=== PATIENT | female | born 1945 | race Caucasian/White ===

== ENCOUNTER 2022-06-16 08:47 | Outpatient (CLI) | payer MEDICARE, SELFPAY ==
--- NOTE | 2022-06-16 11:30 | NEURO_ITS ---
Impression: # Complains of pain in lower extremities. 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 # Needle/EMG exam neurogenic distal more than proximal but no active fibrillation. # Clinical correlation recommended. Nerve Conduction Studies Anti Sensory Summary Table Stim Site NR Peak (ms) P-T Amp (?V) Site1 Site2 Delta-P (ms) Dist (cm) Kodak (m/s) Left Sup Fibular Anti Sensory (Ant Lat Mall) NO RESPONSE 14 cm NR 14 cm Ant Lat Mall 16.0 Right Sup Fibular Anti Sensory (Ant Lat Mall) NO RESPONSE 14 cm NR 14 cm Ant Lat Mall 16.0 Left Sural Anti Sensory (Lat Mall) NO RESPONSE Calf NR Calf Lat Mall 16.0 Right Sural Anti Sensory (Lat Mall) NO RESPONSE Calf NR Calf Lat Mall 16.0 Motor Summary Table Stim Site NR Onset (ms) O-P Amp (mV) Site1 Site2 Delta-0 (ms) Dist (cm) Kodak (m/s) Left Peroneal Motor (Vastus Med) Ankle 5.8 0.8 Popit Ankle 9.2 33.0 36 Popit 15.0 0.8 Right Peroneal Motor (Vastus Med) Ankle 5.5 0.3 Popit Ankle 9.7 33.0 34 Popit 15.2 0.4 Left Tibial Motor (Abd Alcala Brev) Ankle 5.6 1.2 Knee Ankle 9.9 37.0 37 Knee 15.5 1.6 Right Tibial Motor (Abd Alcala Brev) Ankle 5.2 0.1 Knee Ankle 10.7 37.0 35 Knee 15.9 0.4 F Wave Studies NR F-Lat (ms) L-R F-Lat (ms) Left Peroneal (Mrkrs) (EDB) 57.66 3.98 Right Peroneal (Mrkrs) (EDB) 61.64 3.98 Left Tibial (Mrkrs) (Abd Hallucis) 58.97 3.74 Right Tibial (Mrkrs) (Abd Hallucis) 62.71 3.74 EMG Side Muscle Nerve Root Ins Act Fibs Amp Dur Recrt Comment Right AntTibialis Dp Br Fibular L4-5 Nml Nml Nml Nml Nml Right Gastroc Tibial S1-2 Nml Nml Nml Nml Nml Right Fibularis Long Sup Br Fibular L5-S1 Nml Nml Nml Nml Reduced Right Flex Dig Long Tibial L5-S2 Nml Nml Nml Nml Reduced Right Ext Dig Brev Dp Br Fibular L5, S1 Nml Nml Nml >12ms Reduced Left AntTibialis Dp Br Fibular L4-5 Nml Nml Nml Nml Nml Left Gastroc Tibial S1-2 Nml Nml Nml Nml Nml Left Fibularis Long Sup Br Fibular L5-S1 Nml Nml Nml Nml Reduced Left Flex Dig Long Tibial L5-S2 Nml Nml Nml Nml Reduced Left Ext Dig Brev Dp Br Fibular L5, S1 Nml Nml Nml >12ms Reduced Right Ext Dig Long Dp Br Fibular L5-S1 Nml Nml Nml >12ms Reduced Left Ext Dig Long Dp Br Fibular L5-S1 Nml Nml Nml >12ms Reduced MTDD
== END 2022-06-16 08:48 | disposition home or self-care (01) ==
LOC: ANHNEURO 08:50
DX: G25.81 Restless legs syndrome (principal); G62.9 Polyneuropathy, unspecified
CPT/HCPCS: 95886; 95910

== ENCOUNTER 2024-04-02 13:50 | Outpatient (CLI) | payer MEDICARE, SELFPAY ==
[2024-04-02 15:40] LABS: Urine Cotinine NEGATIVE
[2024-04-02 18:32] LABS: Hemoglobin A1C 5.1 % (<5.7)
== END 2024-04-02 13:51 | disposition home or self-care (01) ==
LOC: ANHSURGERY 13:58
PROVIDERS: PCP Family Medicine; Visit Provider Orthopaedic Surgery
DX: Z01.818 Encounter for other preprocedural examination (principal); M16.12 Unilateral primary osteoarthritis, left hip
CPT/HCPCS: 80307; 83036; 87081

== ENCOUNTER 2024-04-16 00:18 | Day surgery (SDC) | payer MEDICARE, SELFPAY ==
--- NOTE | 2024-04-02 13:52 | PC.NURSE ---
PRE-OP INSTRUCTIONS, PLEASE READ CAREFULLY Report to the Outpatient Waiting Room, entrance under the green pavilion located off [facility], at time _0600_ on date _04/16/24_. Planned Procedure Time: _0730_. PACK A SMALL OVERNIGHT BAG AND LEAVE IN THE CAR ALONG WITH YOUR WALKER Time changes happen often and if your time is changed the preop area will call you the afternoon before. - You and your visitor will be asked to self-screen and do not enter if you have any COVID symptoms. - A mask is optional within the hospital at this time. -VISITING HOURS 8AM-8PM Patients may have clear liquids (water, carbonated beverages, clear teas, apple juice) until 3 hours prior to surgery (0430 AM) with a maximum of 20 ounces. - No food from midnight until time of surgery Take the following medications with a SIP of water the morning of surgery: _CARVEDILOL, PRAMIPEXOLE, TIMOLOL EYE DROP, & CYCLOBENZAPRINE, TRAMADOL IF NEEDED_ DO NOT STOP ANY OF YOUR OTHER PRESCRIPTION MEDICATIONS PRIOR TO SURGERY ?EXCEPT THE FOLLOWING Medications to discontinue - _ASPIRIN INSTRUCTED BY DR. BEACH, PATIENT STATES TO CONTINUE ASPIRIN_ Medications to discontinue per ANESTHESIA - _MULTIVITAMIN, SUPPLEMENTS 3 DAYS PRIOR TO SURGERY, Date to take last dose 04/12/24_ Please no make-up, nail welsh, hairspray, perfume, deodorant, or body powder the day of surgery. No jewelry (including any body piercings) or valuables the day of surgery, leave them at home. Please take a shower or bath the night before, or the morning of, surgery with an antibacterial soap. Wear comfortable, loose fitting clothing. - Jewelry must be removed prior to entering the operating room. Rings and piercings that are not removed may be cut off. - The hospital will not accept responsibility for valuables. - Please leave all valuables, including medications, at home the day of surgery. If you are going home after surgery, a licensed car pick up driver must drive you home. - NO public transportation without another adult if you receive anesthesia. - We recommend that an adult stay with you for 24 hours following discharge. - We also recommend that you do not drive, make important decision, drink alcoholic beverages, or take any drugs that were not prescribed by your health care provider for at least 24 hours after your discharge time. Follow any additional instructions given to you from your surgeon. If you or anyone in your household have experienced Covid symptoms in the past week, please notify your surgeon or the nurse liaison at the phone number below for possible testing. Telephone instructions given to _PATIENT_and asked if any additional questions and then verbalized understanding. Patient advised to call surgeon office or pre surgery nurse liaison [phone] if any additional questions.
[2024-04-02 14:35] VITALS: BP 148/48; PULSE 52; RESP 18; TEMP 37.4; O2SAT 100; BMI 29.2
--- NOTE | 2024-04-15 14:50 | PM.IMHP ---
H&P: HPI History of Present Illness Date/Time: 04/15/24 14:50 Chief Complaint: Severe pain due to severe osteoarthritis left hip Narrative: patient is a 78-year-old female who has a 10 year history of worsening osteoarthritis of the left hip which has become extremely advanced with significant acetabular bone loss superior femoral head where shortening of the left lower extremity as result and severe stiffness in the hip. She now is a 30 degree flexion contracture of left hip. She presents for total hip arthroplasty. Patient has a long history of lymphedema. She suffered from obesity and over the past year she has lost weight which has, in addition to use of Bumex, improved her severe lymphedema problem and venous stasis cellulitis issues. She continues to use lymphedema pumps on a regular basis. History of carotid endarterectomy since 2012 and she takes baby aspirin daily for prophylaxis against stroke. History of severe fibromyalgia for which she takes tramadol for pain since 1985. She has history of narcotic withdrawal on stopping these in the past. History of stage III kidney disease. Her creatinine was 0.92 BUN 19 GFR 64 on her preop studies. History of 3 cm abdominal aortic aneurysm being observed. History of painful neuropathy in her hands and feet. Patient cannot walk without a walker except for very short distances in her house with a cane. [facility] Past Medical History Medical History Anxiety Arthritis Fibromyalgia Hypertension Spinal stenosis Surgical History Surgical History H/O cataract removal with insertion of prosthetic lens (~2016) H/O: hysterectomy (~1984) History of bilateral carpal tunnel release (~1986) History of nasal surgery (~2003) Status post carotid surgery (~2012) Family History Family History Father Malignant neoplasm of prostate Other Heart disease Thyroid disorder Social History Social History (Updated 03/19/24 @ 13:40 by Dacia Hyde CMA) Social History: never smoker Smoking status: Never smoker Second hand tobacco smoke exposure: No Additional smoking assessment comments: PT DENIES ALL FORMS OF TOBACCO USE Alcohol intake: never Alcohol use details: 3 drinks per year Substance use: never Substance use type: does not use Do You Feel Safe in your Home?: Yes Lack of Transportation: No Lack of Food: Never True Current Housing: I Have Housing Concerned About Future Housing: No Difficulty Paying Gas/Electric Bills: No Difficulty Paying for Meds: No Currently Unemployed: No Education: High School Diploma/GED Difficulty w/ Childcare or Family Care: No Living arrangements: alone Occupation/Education: retired Spiritual care concerns: No Meds Home Medications and Allergies Home Medications Medication Instructions Recorded Confirmed Type allopurinol 100 mg tablet 100 mg PO DAILY 08/25/22 04/02/24 History aspirin 81 mg tablet,delayed 81 mg PO DAILY 08/25/22 04/02/24 History release bimatoprost 0.01 % eye drops 1 drp EACH EYE DAILY 08/25/22 04/02/24 History ([place]) carvedilol 6.25 mg tablet 6.25 mg PO BID 08/25/22 04/02/24 History coenzyme Q10 100 mg capsule 100 mg PO .COMPLEX 08/25/22 04/02/24 History (CoQ-10) magnesium oxide 250 mg PO DAILY 08/25/22 04/02/24 History multivitamin 1 tablet PO DAILY 08/25/22 04/02/24 History potassium citrate 99 mg capsule 99 mg PO DAILY 08/25/22 04/02/24 History pramipexole 0.5 mg tablet See Rx Instructions .Route 08/25/22 04/02/24 Rx .COMPLEX #120 tabs rosuvastatin 5 mg tablet 5 mg PO DAILY 08/25/22 04/02/24 History timolol 0.5 % eye drops 1 drp EACH EYE Q12H 08/25/22 04/02/24 History biotin 800 mcg tablet 800 mcg PO DAILY 03/19/24 04/02/24 History bumetanide 2 mg tablet 2 mg PO DAILY
[2024-04-16] VITALS (12 sets, daily range): BP systolic 127–190; BP diastolic 49–99; PULSE 49–106; RESP 12–16; TEMP 36.1–36.6; O2SAT 98–100
--- NOTE | ~2024-04-16 | XR_ITS ---
EXAMINATION: XR surgery orthopedic DATE: 04/16/2024 12:59 INDICATION: Anterior approach left hip arthroplasty. TECHNIQUE: A single intraoperative fluoroscopic view of the pelvis was obtained. I was not present. F luoroscopy exposure time was 52 seconds. COMPARISON: Pelvis radiograph 04/16/2024 FINDINGS: There is a total left hip arthroplasty in near-anatomic alignment. IMPRESSION: 1. Total left hip arthroplasty in near-anatomic alignment. Reviewed, dictated and finalized at location A.
--- NOTE | ~2024-04-16 | XR_ITS ---
EXAMINATION: XR hip LT 1V w AP pelvis DATE: 04/16/2024 13:24 INDICATION: Left hip arthroplasty. Postop. TECHNIQUE: An anteroposterior view of the pelvis and single view of left hip were obtained. COMPARISON: Pelvis and left hip radiographs 03/19/2024 FINDINGS: There is a total left hip arthroplasty in near-anatomic alignment. No fracture. There is mi ld right hip osteoarthritis. A surgical drain overlies the soft tissues lateral to left hip. IMPRESSION: 1. Total left hip arthroplasty in near-anatomic alignment. 2. Mild right hip osteoarthritis. Reviewed, dictated and finalized at location A.
[2024-04-16] MEDS: ACETAMINOPHEN 500 MG TABLET 1000 MG PO ×3 (06:20→23:32)
[2024-04-16] MEDS: LACTATED RINGERS 1,000 ML 30 ML IV CONT (07:00)
[2024-04-16] MEDS: VANCOMYCIN 1,000 MG/NS 250 ML BAG 250 MG IVPB (07:00)
[2024-04-16] MEDS: TRANEXAMIC ACID 1,000MG/ISO100 1,000 MG/100 ML BAG 200 MG IVPB (07:06)
--- NOTE | 2024-04-16 07:18 | WPDANESEPPF ---
Anes - Initial Pre Proc Eval Procedure: Operation Date: 04/16/24 07:30 Proposed Procedures p Left Total Hip Arthroplasty, Direct Anterior Approach - Sumit Alfonso MD Date/Time: 04/16/24 07:18 Surgeon: Sumit Alfonso MD Pre Op Diagnosis: OA left hip Patient Data Age: 78 Gender: F Height: 1.57 m Weight: 74 kg Last Vital Signs Temp 97.6 F 04/16/24 06:53 Pulse 52 L 04/16/24 06:53 Resp 16 04/16/24 06:53 BP 132/56 L 04/16/24 06:53 Pulse Ox 100 04/16/24 06:53 O2 Del Method Room Air 04/16/24 06:53 Allergies Allergy/AdvReac Type Severity Reaction Status Date / Time gabapentin Allergy Severe hallucinati Verified 04/02/24 14:16 on Penicillins Allergy Severe Hives Verified 04/02/24 14:16 shellfish derived Allergy Intermediate Itching Verified 04/02/24 14:16 trazodone Allergy Intermediate Vomiting Verified 04/02/24 14:16 atorvastatin AdvReac Intermediate myalgias Verified 04/02/24 14:16 doxycycline AdvReac Intermediate Headache Verified 04/02/24 14:16 duloxetine AdvReac Intermediate pain Verified 04/02/24 14:16 prednisone AdvReac Intermediate Confusion Verified 04/02/24 14:16 pregabalin AdvReac Confusion Verified 04/02/24 14:19 Home Medications Medication Instructions Recorded Confirmed Type allopurinol 100 mg tablet 100 mg PO DAILY 08/25/22 04/16/24 History aspirin 81 mg tablet,delayed 81 mg PO DAILY 08/25/22 04/16/24 History release bimatoprost 0.01 % eye drops 1 drp EACH EYE DAILY 08/25/22 04/16/24 History ([place]) carvedilol 6.25 mg tablet 6.25 mg PO BID 08/25/22 04/16/24 History coenzyme Q10 100 mg capsule 100 mg PO .COMPLEX 08/25/22 04/16/24 History (CoQ-10) magnesium oxide 250 mg PO DAILY 08/25/22 04/16/24 History multivitamin 1 tablet PO DAILY 08/25/22 04/16/24 History potassium citrate 99 mg capsule 99 mg PO DAILY 08/25/22 04/16/24 History pramipexole 0.5 mg tablet See Rx Instructions .Route 08/25/22 04/16/24 Rx .COMPLEX #120 tabs rosuvastatin 5 mg tablet 5 mg PO DAILY 08/25/22 04/16/24 History timolol 0.5 % eye drops 1 drp EACH EYE Q12H 08/25/22 04/16/24 History biotin 800 mcg tablet 800 mcg PO DAILY 03/19/24 04/16/24 History bumetanide 2 mg tablet 2 mg PO DAILY 03/19/24 04/16/24 History cyclobenzaprine 5 mg tablet 5 mg PO TID PRN MUSCLE SPAMS 03/19/24 04/16/24 History cholecalciferol (vitamin D3) 2 tab-cap DAILY 04/02/24 04/16/24 History lisinopril 20 mg tablet 20 mg BID 04/02/24 04/16/24 History tramadol 50 mg tablet 50 mg BID PRN Pain 04/02/24 04/16/24 History Patient hx anesthesia problems: none Family hx anesthesia problems: none Results Review: All pre-operative results and documents have been reviewed as part of the pre-operative evaluation. [facility] Past Medical History Medical History Anxiety Arthritis Fibromyalgia Hypertension Spinal stenosis Surgical History Surgical History H/O cataract removal with insertion of prosthetic lens (~2016) H/O: hysterectomy (~1984) History of bilateral carpal tunnel release (~1986) History of nasal surgery (~2003) Status post carotid surgery (~2012) Family History Family History Father Malignant neoplasm of prostate Other Heart disease Thyroid disorder Social History Social History Social History: never smoker Smoking status: Never smoker Second hand tobacco smoke exposure: No Additional smoking assessment comments: PT DENIES ALL FORMS OF TOBACCO USE Alcohol intake: never Alcohol use details: 3 drinks per year Substance use: never Substance use type: does not use Do You Feel Safe in your Home?: Yes Lack of Transportation: No Lack of Food: Never True Current Housing: I Have Housing Concerned About Future Housing: No Difficulty Paying
--- NOTE | 2024-04-16 07:20 | WPDHPUPDATE1 ---
History and Physical Update Update Date/Time: 04/16/24 07:20 History and Physical has been reviewed, including an updated exam of the patient. There are NO changes in the patient's condition. Risks, benefits, and alternatives have been discussed and questions answered. Patient agrees to proceed with procedure.
[2024-04-16] MEDS: ceFAZolin 2 GM/D5W 50 ML 2 GM/50 ML BAG IVPB (07:38)
[2024-04-16] MEDS: ceFAZolin SODIUM 1 GM VIAL 3 GM (08:38)
[2024-04-16] MEDS: SODIUM CHLORIDE 0.9% IV 37.7 ML, MORPHINE SULFATE INJ (*CRX) 2 MG, ROPivacaine HCL 1% 2... INFILTRATE (08:39)
[2024-04-16] MEDS: ceFAZolin SODIUM 1 GM VIAL 2 GM IV PUSH (11:50)
[2024-04-16] MEDS: TRANEXAMIC ACID 1,000 MG/10 ML AMPUL 1000 MG IV PUSH (11:52)
[2024-04-16] MEDS: fentaNYL CITRATE INJ (*CRX) 100 MCG/2 ML VIAL 25 MCG IV PUSH ×5 (13:19→13:43)
--- NOTE | 2024-04-16 13:40 | W.PM.PROC2 ---
Procedure Note - Detailed Date of Procedure 04/16/24 Pre-op Diagnosis OA left hip Post-op Diagnosis Same Procedure Performed Left total hip arthroplasty Surgeon Sumit Alfonso MD Anesthesia General Description of Procedure patient was brought to the operating room general anesthesia was administered. The patient received 2 g Ancef weight based vancomycin 1 g of tranexamic acid preoperatively. Barriga catheter was placed. Soft roll was applied to the feet in the boots applied and she was transferred to the OSI [place] table and the left hip prepped draped usual fashion. A 10 cm longitudinal incision was made starting 3 cm lateral to the ASIS and dissection carried down to the fascia of the tensor fascia delio which was longitudinally incised and elevated off the anterior 1/2 the TFL muscle. The interval between rectus femoris and TFL muscle was developed. Crossing branches of ascending lateral femoral circumflex vessels were ligated with suture divided. Retractor was placed anteriorly capsule under ileal capsule layers the hip abducted and the gluteus minimus carefully elevated off the lateral capsule. Inverted T capsulotomy was performed. Femoral neck osteotomy made according to preoperative templating. She had a very stiff hip preoperatively with 30 degree flexion contracture and a short femoral neck which made exposure more difficult. We excised as much labrum as possible. Complete release of the iliofemoral ligament was performed off the distal femur as she had significant shortening Of leg length due to wear. The leg was externally rotated extended and the lateral capsule release completed off the greater trochanter and the interval between conjoined tendon and piriformis incised allowing the piriformis to flipped and the conjoined tendon to recess. This was done in order to improved the working space and the leg was brought back up to the horizontal position and corkscrew was inserted in the femoral head and the femoral head was removed without difficulty. It measured 45 mm diameter was severely arthritic. The acetabulum was exposed. Osteophytes debrided the anterior acetabulum. There was no cartilage remaining anywhere about the acetabulum all the bone exposed was sclerotic. Minimal medialization was performed with the 44 Reamer and we went up by 1s and the 48 trial at 48 was still loose. The 49 Reamer was used the 49 trial still little bit loose. Her anterior posterior dimension was somewhat enlarged due to the chronicity of the central type arthritis pattern which expanded the acetabular dimensions peripherally a little bit and we reamed with a 50 and this finally reamed to the periphery and the 50 trial was snug. We chose the size 50 emphasis cup. This was seated at 40? of abduction and anteversion such that the anterior shell was a mm to under the anterior rim remaining acetabulum after debridement of osteophyte. Excellent Press-Fit was achieved. Her bone was actually very hard and sclerotic throughout and full seating took a little while. A single screw was placed in the ilium and the 36 inner diameter polyethylene liner placed without difficulty. The femur was exposed. We broached up to a size 4 and this was trialed and was too tight for the size 1.5 mm neck head. I could not reduce the hip. We countersunk the 4 broach about 4 mm and trialed with the -2 head and the reduction was achievable with appropriate Shuck. As we anticipated on preoperative templating, the left leg was still a few mm shorter referencing off the lesser trochanters. I elected to therefore used the -2 head so we would be able to get as much length packed as possible and still reduce the hip rather than the 1.5. Standard neck was used. We had a little bit of wiggle in the stem and I broached up to a 5 head origin all neck cut tried to reduce it with a -2 head but was unable. I countersunk the stem another 2 mm and I could reduce it with a -2 head that point. The
[2024-04-16] MEDS: hydrALAZINE HCL 20 MG/ML VIAL 5 MG IV PUSH (13:58)
[2024-04-16] MEDS: SENNA/DOCUSATE SODIUM TABLET 2 TAB PO (16:21)
[2024-04-16] MEDS: oxyCODONE HCL (*CRX) 5 MG TAB IR PO ×3 (16:21→22:25)
--- NOTE | 2024-04-16 16:27 | ADMGEN ---
This patient, Linda Su, was admitted to [facility] Surg Room 328-01. Patient/family oriented to hospital policies and general routines including ID bracelet, bed and alarms, visiting hours, pain management, procedures, bathroom and other care routines, personal items, smoking policy, room service/diet, and visiting hours. Information on how to activate the Rapid Response Team has been discussed. Patient/Family are encouraged to report perceived risks to care and to ask questions if they do not understand what they are told or what they should do.
--- NOTE | 2024-04-16 17:25 | WPDCN ---
Assessment and Plan Assessment and plan (1) Osteoarthritis of left hip: Qualifiers: Osteoarthritis type: primary Qualified Code(s): M16.12 - Unilateral primary osteoarthritis, left hip Code(s): M16.12 - Unilateral primary osteoarthritis, left hip Status: Acute Assessment and Plan: Postoperative day 0 status post left total hip arthroplasty. Wound care, pain control, and DVT prophylaxis deferred to Dr. Alfonso. Check baseline labs in a.m. (2) Hypertension: Code(s): I10 - Essential (primary) hypertension Status: Acute Assessment and Plan: Blood pressures were reviewed and they have been stable postoperatively. Resume antihypertensives and monitor blood pressures closely. (3) Glaucoma: Code(s): H40.9 - Unspecified glaucoma Status: Acute Assessment and Plan: Continue eyedrops. Plan Thank you for allowing us to participate in this patient's care. Please do not hesitate to contact us with any questions. HPI Data of Consult Date/Time: 04/16/24 18:00 Requesting Physician: Sumit Alofnso MD Consult Narrative Reason for consult: Medical management Narrative: This is a very pleasant 78-year-old female with osteoarthritis, hypertension, hyperlipidemia, restless leg syndrome, and untreated sleep apnea whom the hospitalist service has been consulted for help managing her medical conditions postoperatively. The patient provides the following history. She presented today for elective left hip arthroplasty due to ongoing left hip pain despite conservative outpatient treatment. Her surgery was performed under general anesthesia with no immediate complications documented. Estimated blood loss was 600 mL and she received 250 mL back as Cell Saver. She has done quite well postoperatively and has been up with physical physical therapy, to the chair, and to the bathroom. Her pain is pretty well controlled. She denies fever, chills, chest pain, shortness of breath, nausea, and vomiting. No edema, paresthesias, skin color or temperature changes distal to the surgical site. No history of venous thromboembolism. She lives alone but her daughter will be staying with her for couple of weeks to help out. Regarding her chronic medical conditions, she reports that they are stable on her home medications. She is intolerant to CPAP in her sleep apnea is untreated. Review of Systems Review of Systems: 12 systems were reviewed and are negative except for as per HPI. [facility] Past Medical History Medical History (Updated 04/16/24 @ 20:01 by Melissa Pedersen PA-C) Anxiety Arthritis Fibromyalgia Glaucoma Hyperlipidemia Hypertension Kidney stones Obstructive sleep apnea Restless leg syndrome Spinal stenosis Surgical History Surgical History (Updated 04/16/24 @ 20:01 by Melissa Pedersen PA-C) History of appendectomy History of benign breast biopsy History of bilateral carpal tunnel release (~1986) History of cardiac catheterization History of cataract removal with insertion of prosthetic lens (2016) History of hysterectomy (1984) History of nasal surgery (2003) History of right-sided carotid endarterectomy (2012) Family History Family History Father Malignant neoplasm of prostate Other Heart disease Thyroid disorder Social History Social History (Updated 04/16/24 @ 19:59 by Melissa Pedersen PA-C) Social History: Surrogate medical decision maker: Tahmina Roque or Geena Andrews, daughters. Code status: Full code. Smoking status: Never smoker Second hand tobacco smoke exposure: No Alcohol intake: never Alcohol use details: 3 drinks per year Substance use: never Substance use type: does not use Do You Feel Safe in your Home?: Yes Lack of Transportation: No Lack of Food: Never True Current Housing: I Have Housing Concerned About Future Housing: No Difficulty Pay
[2024-04-16] MEDS: VANCOMYCIN 1,000 MG/NS 250 ML 1,000 MG/250 ML BAG 250 MG IVPB (18:27)
[2024-04-16] MEDS: LATANOPROST 0.005% OP SOLN 2.5 ML BTL 1 DROP EACH EYE (20:18)
[2024-04-16] MEDS: carvediloL 6.25 MG TABLET PO (20:19)
[2024-04-16] MEDS: PRAMIPEXOLE 0.5 MG TABLET 1 MG PO (20:20)
[2024-04-16] MEDS: TIMOLOL MALEATE 0.5% OP SOLN 5 ML BOTTLE 1 DROP EACH EYE (20:22)
[2024-04-16] MEDS: ceFAZolin 1 GM/NS 50 ML 1 GM/50 ML BAG IVPB (20:24)
[2024-04-17] MEDS: ceFAZolin 1 GM/NS 50 ML 1 GM/50 ML BAG IVPB ×2 (03:14→12:46)
[2024-04-17] MEDS: oxyCODONE HCL (*CRX) 5 MG TAB IR PO ×2 (03:15→06:12)
[2024-04-17 03:51] VITALS: BP 141/58; PULSE 53; RESP 16; TEMP 36.6; O2SAT 100
[2024-04-17] MEDS: ACETAMINOPHEN 500 MG TABLET 1000 MG PO (06:12)
[2024-04-17] MEDS: VANCOMYCIN 1,000 MG/NS 250 ML 1,000 MG/250 ML BAG 250 MG IVPB (06:13)
[2024-04-17 06:40] LABS: Basophils Percent Auto 0.2 % (0.2-1.2); Eosinophils Percent Auto 0.1 % (0-4.4); Hematocrit 30.3 % (37.0-47.0); Hemoglobin 9.8 g/dL (12.0-15.0); Immature Granulocyte Absolute 0.07 K/mm3 (0.00-0.031); Immature Granulocyte Percent A 0.7 % (0-0.5); Lymphocytes Absolute Auto 1.16 K/mm3 (0.9-3.2); Lymphocytes Percent Auto 11.3 % (18.3-44.2); Mean Corpuscular HGB Conc 32.3 g/dl (32-36); Mean Corpuscular Hemoglobin 31.9 pg (26-34); Mean Corpuscular Volume 98.7 fl (80-100); Mean Platelet Volume 9.8 fl (7.4-10.4); Monocytes Absolute Auto 0.9 K/mm3 (0.1-0.6); Monocytes Percent Auto 8.7 % (2.6-8.5); Neutrophils Absolute Auto 8.1 K/mm3 (1.3-6.7); Platelet Count Result 122 k/mm3 (150-375); Red Blood Count 3.07 M/mm3 (4.2-5.4); Red Cell Distribution Width 13.4 % (11.5-14.5); White Blood Count 10.2 K/mm3 (4.5-10.0)
[2024-04-17 06:55] LABS: Anion Gap 1 mmol/L (4-12); Blood Urea Nitrogen 22 mg/dL (7-17); Calcium 8.3 mg/dL (8.4-10.2); Carbon Dioxide 29 mmol/L (22-30); Chloride 105 mmol/L (98-107); Estimated CRCL calculation 49 ml/min; Estimated Glomerular Filt Rate > 60; Glucose 147 mg/dL (65-110); Magnesium 1.8 mg/dL (1.6-2.3); Potassium 3.5 mmol/L (3.4-5.0); Sodium 135 mmol/L (137-145)
[2024-04-17] MEDS: BUMETANIDE 1 MG TABLET 2 MG PO (08:38)
[2024-04-17] MEDS: polyethylene glycoL 3350 17 GM POWD.PACK PO (08:38)
[2024-04-17] MEDS: APIXABAN 2.5 MG TABLET PO (08:38)
[2024-04-17 08:39] VITALS: PULSE 57
[2024-04-17] MEDS: MAGNESIUM OXIDE 200 MG TABLET PO (08:39)
[2024-04-17] MEDS: ROSUVASTATIN 5 MG TABLET PO (08:39)
[2024-04-17] MEDS: carvediloL 6.25 MG TABLET PO (08:39)
[2024-04-17] MEDS: MULTIVITAMINS THERAPEUTIC TAB (*BKC) 1 TABLET PO (08:39)
[2024-04-17] MEDS: SENNA/DOCUSATE SODIUM TABLET 2 TAB PO (08:40)
[2024-04-17] MEDS: ASPIRIN 81 MG ENTERIC TABLET PO (08:40)
[2024-04-17] MEDS: allopurinoL 100 MG TABLET PO (08:41)
[2024-04-17] MEDS: PRAMIPEXOLE 0.5 MG TABLET PO (08:41)
[2024-04-17] MEDS: TIMOLOL MALEATE 0.5% OP SOLN 5 ML BOTTLE 1 DROP EACH EYE (08:43)
--- NOTE | 2024-04-17 10:35 | P.PNAN_ITS ---
Anes - Prog Note Post-Op Date/Time: 04/17/24 10:35 Cardiovascular status: normal Respiratory status: normal Airway patency: baseline Mental status: baseline Post-Op hydration status: normal Vital Signs: Last Vital Signs Temp 36.6 C 04/17/24 03:51 Pulse 57 L 04/17/24 08:39 Resp 16 04/17/24 03:51 BP 141/58 H 04/17/24 03:51 Pulse Ox 100 04/17/24 03:51 O2 Del Method Room Air 04/16/24 17:15 O2 Flow Rate 8 04/16/24 13:20 Pain Score (VAS): 01/07 I/O: Intake & Output 04/16/24 04/17/24 04/17/24 23:59 07:59 15:59 Intake Total 540 800 120 Output Total 120 70 Balance 420 730 120 Laboratory Tests 04/17/24 05:46 04/17/24 05:46 04/17/24 05:46 WBC 10.2 H RBC 3.07 L Hgb 9.8 L Hct 30.3 L MCV 98.7 MCH 31.9 MCHC 32.3 RDW 13.4 Plt Count 122 L MPV 9.8 Immature Gran % (Auto) 0.7 H Neut % (Auto) 79.0 H Lymph % (Auto) 11.3 L [place]eker % (Auto) 8.7 H Eos % (Auto) 0.1 Baso % (Auto) 0.2 Lymph # (Auto) 1.16 [place] # (Auto) 0.9 H Eos # (Auto) 0.0 Baso # (Auto) 0.0 Abs Immat Gran (auto) 0.07 H Absolute Neuts (auto) 8.1 H Absolute Nucleated RBC 0.000 Nucleated RBC % 0.0 Sodium 135 L Potassium 3.5 Chloride 105 Carbon Dioxide 29 Anion Gap 1 L BUN 22 H Creatinine 0.80 Estim Creat Clear Calc 49 Estimated GFR > 60 Glucose 147 H Calcium 8.3 L Magnesium 1.8 Post-procedural complaints: none Patient Feedback: Patient satisfied with anesthetic care.
--- NOTE | 2024-04-17 12:37 | PM.DS ---
DS: Admitting Diagnosis Discharge Date 04/17/2024 Admitting Diagnosis Osteoarthritis left hip advanced DS: Discharge Diagnosis Discharge Diagnosis (1) Status post left hip replacement: Code(s): Z96.642 - Presence of left artificial hip joint Status: Acute DS: Summary Hospital Course Hospital Course: Patient underwent left total hip arthroplasty direct anterior approach on 04/16/2024. She has done very well postoperatively and is already walking better and can stand upright now weight-bearing as tolerated with walker. She is very comfortable. Laboratory studies this morning hemoglobin sending [id number] acute blood loss anemia. Preop hemoglobin was 12.1. Platelets [id number] preop 199. BUN is 22 preop 26, creatinine 0.8 preop 1.0 is now greater than 60. Her wound is dry and intact. I showed her how to apply dressing which she will remove with showers. For pre She is alert and oriented and very comfortable Time Spent with Patient Time attestation: Total time spent providing and/or coordinating discharge services: DS: Data Data Completed and Pending Labs on day of discharge: Labs from last 24 hours 04/17/24 05:46 WBC 10.2 H RBC 3.07 L Hgb 9.8 L Hct 30.3 L MCV 98.7 MCH 31.9 MCHC 32.3 RDW 13.4 Plt Count 122 L MPV 9.8 Immature Gran % (Auto) 0.7 H Neut % (Auto) 79.0 H Lymph % (Auto) 11.3 L Craven % (Auto) 8.7 H Eos % (Auto) 0.1 Baso % (Auto) 0.2 Lymph # (Auto) 1.16 Craven # (Auto) 0.9 H Eos # (Auto) 0.0 Baso # (Auto) 0.0 Abs Immat Gran (auto) 0.07 H Absolute Neuts (auto) 8.1 H Absolute Nucleated RBC 0.000 Nucleated RBC % 0.0 Sodium 135 L Potassium 3.5 Chloride 105 Carbon Dioxide 29 Anion Gap 1 L BUN 22 H Creatinine 0.80 Estim Creat Clear Calc 49 Estimated GFR > 60 Glucose 147 H Calcium 8.3 L Magnesium 1.8 Discharge Plan Discharge Patient Disposition: Home, Self-Care Discharge Instructions: [facility] [address] [place] [address] [address] [place] [address] POST-OPERATIVE DISCHARGE INSTRUCTIONS ANTERIOR TOTAL HIP ARTHROPLASTY 1. Move toes/feet up and down every hour while awake. 2. Be up walking every hour while awake. 3. Use walker field marketing lead if instructed to use walker field marketing lead.When you are allowed to use the cane, use the cane in the opposite hand. 4. When resting, do not rest in the chair. Rather, lie on your back, with back flat, and the leg elevated above heart to minimize swelling. You may put a pillow under your head. Do not rest in a chair. Resting in the chair results in swelling in the leg. Significant swelling could indicate a blood clot and if this occurs, call the office (or go to the ER) to have a venous ultrasound performed. Its ok to sit in the chair to eat and use the toilet and to receive a guest but sitting in a chair will cause your leg to swell. so try to minimize sitting in a chair. 5. Wound Care: Apply a folded 4x4 sponge to incision and hold with crossing strips of 1 inch Transpore tape. 6. Follow weight bearing status as instructed: 7. May shower. Remove dressing before shower and reapply dressing after shower. Patient Instructions: Antibiotic Form, Total Hip Replacement (DC) Discharge Medications: New acetaminophen 500 mg Tablet 1,000 mg PO Q6HR Qty: 100 0RF Eliquis 2.5 mg Tablet 2.5 mg PO Q12HR Qty: 69 0RF sennosides-docusate sodium [Senokot-S] 8.6-50 mg Tablet 2 tab-cap PO BID Qty: 120 0RF cefdinir 300 mg Capsule 300 mg PO Q12HR Qty: 14 0RF polyethylene glycol 3350 [Miralax] 17 gram Powder In Packet 17 g PO QAM Qty: 30 0RF oxycodone 5 mg Tablet 5 mg PO Q4H PRN (Reason: Pain Rated 4-10) Qty: 40 0RF Continued allopurinol 100 mg tablet 100 mg PO DAILY aspirin 81 mg tablet,delayed release (DR/EC) 81 mg PO DAILY Rx Instructions: TAKES AT HS carvedilol 6.25 mg tablet 6.25 m
[2024-04-17] MEDS: CYCLOBENZAPRINE HCL 5 MG TABLET PO (13:46)
== END 2024-04-17 14:18 | disposition home or self-care (01) ==
LOC: ANHSURGERY 05:49 → ANH3MEDSUR 14:10
PROVIDERS: PCP Family Medicine; Visit Provider Orthopaedic Surgery
PROC: (CPT 27130; principal; 2024-04-16 07:30)
DX: M16.12 Unilateral primary osteoarthritis, left hip (principal); I12.9 Hypertensive chronic kidney disease with stage 1 through stage 4 chronic kidney disease, or unspecified chronic kidney disease; N18.30 Chronic kidney disease, stage 3 unspecified; M79.7 Fibromyalgia; F41.9 Anxiety disorder, unspecified; I71.40 Abdominal aortic aneurysm, without rupture, unspecified; G62.9 Polyneuropathy, unspecified; Z79.891 Long term (current) use of opiate analgesic; Z79.82 Long term (current) use of aspirin
CPT/HCPCS: 27130; 36415; 73501; 80048; 83735; 85025; 86850; 86900; 86901; 97110; 97116; 97161; 97165; 97530; 97535; 99199; A9270; C1776; J0171; J0360; J0690; J1100; J1170; J1200; J1885; J2270; J2405; J2704; J2795; J3010; J3370; J7120